=== PATIENT | male | born 1950 | race Caucasian/White ===

== ENCOUNTER 2017-04-23 19:00 | Emergency (ER) | payer MEDICARE, OTHER ==
[2017-04-23 19:50] VITALS: BP 153/98
[2017-04-23] MEDS ORDERED: Lidocaine 1% 20 ML MDV INJECT ONE (20:00)
[2017-04-23] MEDS ORDERED: Bacitracin Oint 1 GM U/D Packet TOP ONE (20:38)
--- NOTE | 2017-04-23 20:38 | EDM.PDOC ---
ED HPI GENERAL MEDICAL PROBLEM - General Chief Complaint: Laceration Stated Complaint: CUT L LACERATION Time Seen by Provider: 04/23/17 20:00 Source of Information: Reports: Patient History Limitations: Reports: No Limitations - History of Present Illness INITIAL COMMENTS - FREE TEXT/NARRATIVE: Luigi is a 66 year old male on Plavix who presents to the ED today after sustaining left hand laceration from filet knife. DT is up to date, denies any other injuries. Left Hand Pain Score (Numeric/FACES): 2 - Related Data Allergies Allergy/AdvReac Type Severity Reaction Status Date / Time No Known Allergies Allergy Verified 04/23/17 20:04 Past Medical History Cardiovascular History: Reports: Hypertension, OR, Stents Other Endocrine/Metabolic History: DM - Past Surgical History Other Musculoskeletal Surgeries/Procedures:: STENOSIS, LUMBAR BULDGING DISC L4, L5 Social & Family History - Tobacco Use Smoking Status *Q: Unknown Ever Smoked ED ROS GENERAL - Review of Systems Review Of Systems: ROS reveals no pertinent complaints other than HPI. ED EXAM, SKIN/RASH Exam: See Below Exam Limited By: No Limitations General Appearance: Alert, WD/WN, No Apparent Distress Respiratory/Chest: No Respiratory Distress Cardiovascular: Normal Peripheral Pulses, Regular Rate, Rhythm Extremities: Normal Inspection Skin: Warm, Dry, Other ( 2 cm flap lac to left dunaway hand) Lymphatic: No Adenopathy ED SKIN PROCEDURES - Laceration/Wound Repair Left Hand Appearance: Subcutaneous Anesthetic Type: Local Local Anesthesia - Lidocaine (Xylocaine): 1% Plain Local Anesthetic Volume: 4cc Skin Prep: Saline Exploration/Debridement/Repair: Wound Explored, No Foreign Material Found Closed with: Sutures Suture Size: other (5-0) # of Sutures: 5 Course - Vital Signs Text/Narrative:: Luigi is a 66 year old male who presents to the ED today after sustaining left hand laceration from filet knife. Please refer to HPI and focused exam. Suture repair done as noted. Patient tolerated well, wound care discussed in detail. Suture removal in 7-10 days. Reasons to return discussed, patient agreeable and discharged in stable condition. Last Recorded V/S: Last Vital Signs Temp 37.5 C 04/23/17 19:48 Pulse 68 04/23/17 19:48 Resp 15 04/23/17 19:48 BP 153/98 H 04/23/17 19:48 Pulse Ox 98 04/23/17 19:48 - Orders/Labs/Meds Meds: Medications Discontinued Medications Generic Name Dose Route Start Last Admin Trade Name Mari PRN Reason Stop Dose Admin Bacitracin 1 dose 04/23/17 20:38 04/23/17 20:45 Bacitracin Oint 1 Gm TOP 04/23/17 20:39 1 dose ONETIME ONE Administration Lidocaine HCl 20 ml 04/23/17 20:00 04/23/17 20:44 Xylocaine 1% INJECT 04/23/17 20:01 Not Given ONETIME ONE Lidocaine HCl Confirm 04/23/17 20:09 04/23/17 20:44 Xylocaine-Mpf 1% Administered 04/23/17 20:10 5 ml Dose Administration 5 ml .ROUTE .STK-MED ONE Departure - Departure Time of Disposition: 21:00 Disposition: Home, Self-Care 01 Condition: Good Clinical Impression: Laceration of hand Qualifiers: Encounter type: initial encounter Foreign body presence: without foreign body Laterality: left Qualified Code(s): S61.412A - Laceration without foreign body of left hand, initial encounter - Discharge Information Instructions: Laceration Care, Adult, [id number] Referrals: PCP,None [Primary Care Provider] - Forms: ED Department Discharge Additional Instructions: Keep wound covered for the first 24 hours. Use Bacitracin twice daily for 3 days. Apply ice for 20 minutes 5 times daily for 2 days Take Tylenol as needed for pain. Suture removal in 7-10 days
== END 2017-04-23 20:51 | disposition home or self-care (01) ==
LOC: JP.ED 19:00
DX: S61.412A Laceration without foreign body of left hand, initial encounter (principal); I25.2 Old myocardial infarction; I10 Essential (primary) hypertension; Z98.890 Other specified postprocedural states; W26.0XXA Contact with knife, initial encounter
CPT/HCPCS: 12001; 99282-25; 99283-25